=== PATIENT | female | born 1965 | race African-American/Black ===

== ENCOUNTER 2017-10-07 19:19 | Inpatient (IN) | payer OTHER ==
[~2017-10-07] VITALS: Ht 167.6 cm; Wt 58.3 kg
[~2017-10-07 19:19] MED LIST: ACYC400T PO; ARTIOIN OP; DOCU-137 PO; GABA400C11; INSLANTI SUBCUT; INSU100I4; LISI2.5T47; ONDANSETRON TAB 4MG ODT; TEMA15CA; [UNRECOGNIZED DRUG - CODE]
[2017-10-07 22:23] LABS: Albumin 3.6 g/dL (3.4-5.0); BUN/Creatinine Ratio 36.8; Calcium 10.9 mg/dL (8.5-10.1); Potassium 4.4 mmol/L (3.5-5.1)
[2017-10-07 22:25] LABS: Bilirubin, Total 0.4 mg/dL (0.2-1.0); Total Protein 8.6 g/dL (6.4-8.2)
[2017-10-07 22:44] LABS: Basophils # (auto) 0.1 uL; Basophils % (auto) 1.1 % (0.0-2.0); Eosinophils # (auto) 0.1 uL; Hematocrit 32.7 % (36.0-46.0); Lymphocytes # (auto) 1.8 uL; Lymphocytes % (auto) 19.6 % (10.0-50.0); Mean Corpuscular Hemoglobin 29.5 pg (28.0-32.0); Mean Corpuscular Hgb Conc. 33.7 g/dL (32.0-36.0); Mean Corpuscular Volume 87.5 fL (80.0-100.0); Monocytes # (auto) 0.4 uL; Monocytes % (auto) 4.8 % (0.0-12.0); Neutrophils # (auto) 6.7 uL; Neutrophils % (auto) 73.5 % (37.0-80.0); Nucleated Red Blood Cells % 0.1 %; Platelet Count (auto) 394 10^3/uL (140-450); Red Blood Cells 3.73 10^6/uL (4.0-5.20); Red Cell Distribution Width 15.5 % (11.8-14.3); White Blood Cell 9.2 10^3/uL (4.4-10.8)
[2017-10-07] MEDS ORDERED: InsuLIN REG 1unit/0.01ml Soln (100units/ml) IV ONE (22:45)
[2017-10-07] MEDS ORDERED: SODIUM CHLORIDE 0.9% 2,000 ML IV ONE (22:45)
[2017-10-07] MEDS ORDERED: HYDROmorphone HCL 2 MG/ML VL IV ONE (22:45)
[2017-10-07] MEDS ORDERED: ONDANSETRON HCL 4 MG/2 ML VIAL IV ONE (22:45)
[2017-10-07 23:09] LABS: INR 0.95 (0.9-1.15); Prothrombin Time 10.4 sec (9.37-12.3)
[2017-10-07] MEDS ORDERED: LORazepam 2MG/ML-1ML VIAL IV ONE (23:45)
[2017-10-08] MEDS ORDERED: LORazepam 2MG/ML-1ML VIAL IV ONE (04:15)
[2017-10-08] MEDS ORDERED: diphenhdrAMINE HCL 50 MG/1 ML VL IV ONE (04:15)
[2017-10-08] MEDS ORDERED: HALOPERIDOL LACTATE 5 MG/ML INJ VIAL IM ONE (04:15)
[2017-10-08] MEDS ORDERED: SODIUM CHLORIDE 0.9% 1,000 ML IV ONE (05:45)
[2017-10-08] MEDS ORDERED: SODIUM CHLORIDE 0.9% 1,000 ML IV SCH (06:05)
[2017-10-08] MEDS ORDERED: TEMAZEPAM 15 MG CAP PO PRN (06:15)
[2017-10-08] MEDS ORDERED: HYDROcodone-ACET 5/325MG TAB PO PRN (06:15)
[2017-10-08] MEDS ORDERED: MORPHINE SULFATE 10 MG/ML INJ 1ML SDV IV PRN (06:15)
[2017-10-08] MEDS ORDERED: DOCUSATE SOD 100 MG CAP PO PRN (06:15)
[2017-10-08] MEDS ORDERED: ONDANSETRON HCL 4 MG/2 ML VIAL IV PRN (06:15)
[2017-10-08] MEDS ORDERED: DEXTROSE (50%) 50ML SYRG IV PRN (06:15)
[2017-10-08] MEDS ORDERED: ACETAMINOPHEN 325 MG TAB PO PRN (06:15)
[2017-10-08] MEDS ORDERED: NITROGLYCERIN 0.4 MG SL TAB SL PRN (06:15)
[2017-10-08 08:00] VITALS: BP 103/65
[2017-10-08] MEDS: ACCU-CHEK COMFORT CURVE STRIP VI SCH ×2 (08:39→12:47)
[2017-10-08] MEDS: InsuLIN REG 1unit/0.01ml Soln (100units/ml) SC SCH ×2 (08:40→12:48)
[2017-10-08 08:52] VITALS: BP 103/65
[2017-10-08] MEDS ORDERED: cefTRIAXone 1GM/10ml IVPUSH 10 ML IV SCH (09:00)
[2017-10-08] MEDS ORDERED: PANTOPRAZOLE 40 MG TAB PO SCH (10:00)
[2017-10-08] MEDS ORDERED: ENOXAPARIN SOD 40 MG/0.4 ML SYRINGE SC SCH (10:00)
[2017-10-08] MEDS ORDERED: GABAPENTIN 400 MG CAP PO SCH (10:00)
[2017-10-08] MEDS ORDERED: LISINOPRIL 5 MG TAB PO SCH (10:00)
[2017-10-08 11:23] VITALS: BP 103/65
[2017-10-08 13:12] VITALS: BP 94/60
== END 2017-10-08 15:30 | disposition home or self-care (01) | DRG 349 ==
LOC: EDBD 19:19 → ER 19:22 → TELE 19:23 → TELE-WESTW 10-08 07:23
PROVIDERS: ADMIT Nurse Practitioner; ATTEND Internal Medicine
DX: T87.44 Infection of amputation stump, left lower extremity (principal); E11.10 Type 2 diabetes mellitus with ketoacidosis without coma; E11.22 Type 2 diabetes mellitus with diabetic chronic kidney disease; M86.8X7 Other osteomyelitis, ankle and foot; R56.9 Unspecified convulsions; N18.3 Chronic kidney disease, stage 3 (moderate); J44.9 Chronic obstructive pulmonary disease, unspecified; F17.210 Nicotine dependence, cigarettes, uncomplicated; K21.9 Gastro-esophageal reflux disease without esophagitis; F41.9 Anxiety disorder, unspecified; E86.0 Dehydration; Y81.3 Surgical instruments, materials and general- and plastic-surgery devices (including sutures) associated with adverse incidents; Y83.5 Amputation of limb(s) as the cause of abnormal reaction of the patient, or of later complication, without mention of misadventure at the time of the procedure; E78.5 Hyperlipidemia, unspecified; R35.8 Other polyuria; I12.9 Hypertensive chronic kidney disease with stage 1 through stage 4 chronic kidney disease, or unspecified chronic kidney disease; R63.1 Polydipsia; Z80.3 Family history of malignant neoplasm of breast; Z82.49 Family history of ischemic heart disease and other diseases of the circulatory system; Z86.73 Personal history of transient ischemic attack (TIA), and cerebral infarction without residual deficits; Z87.11 Personal history of peptic ulcer disease; Z83.3 Family history of diabetes mellitus
CPT/HCPCS: 36415; 71045; 73700; 74176; 80053; 82010; 82962; 83036; 85025; 85610; 87081; 93005; 96361; 96372; 96374; 96375; 96376; J1815; J2405

== ENCOUNTER 2017-10-31 10:18 | Emergency (ER) | payer OTHER ==
[~2017-10-31] VITALS: Ht 167.6 cm; Wt 54.4 kg
[2017-10-31 11:29] LABS: Basophils # (auto) 0.1 uL; Eosinophils # (auto) 0.3 uL; Hematocrit 30.4 % (36.0-46.0); Monocytes # (auto) 0.4 uL; Neutrophils # (auto) 5.9 uL
[2017-10-31 11:31] LABS: Basophils % (auto) 1.5 % (0.0-2.0); Eosinophils % (auto) 3.1 % (0.0-7.0); Lymphocytes % (auto) 22.8 % (10.0-50.0); Mean Corpuscular Hemoglobin 28.4 pg (28.0-32.0); Mean Corpuscular Hgb Conc. 32.9 g/dL (32.0-36.0); Mean Corpuscular Volume 86.4 fL (80.0-100.0); Monocytes % (auto) 4.4 % (0.0-12.0); Neutrophils % (auto) 68.2 % (37.0-80.0); Platelet Count (auto) 472 10^3/uL (140-450); Red Blood Cells 3.52 10^6/uL (4.0-5.20); Red Cell Distribution Width 15.6 % (11.8-14.3); White Blood Cell 8.7 10^3/uL (4.4-10.8)
[2017-10-31 11:52] LABS: Alanine Aminotransferase 17 U/L (13-56); Albumin 3.4 g/dL (3.4-5.0); Alkaline Phosphatase 133 U/L (45-117); Anion Gap 15 (5-15); Aspartate Aminotransferase 10 U/L (15-37); BUN/Creatinine Ratio 20.3; Bilirubin, Total 0.4 mg/dL (0.2-1.0); Blood Urea Nitrogen 37 mg/dL (7-18); Calcium 11.4 mg/dL (8.5-10.1); Carbon Dioxide 23 mmol/L (21-32); Chloride 96 mmol/L (98-107); GFR African American 38 mL/min; GFR Non-African American 31 mL/min; Glucose 360 mg/dL (74-106); Magnesium 1.9 mg/dL (1.6-2.6); Potassium 4.6 mmol/L (3.5-5.1); Sodium 134 mmol/L (136-145); Total Protein 8.9 g/dL (6.4-8.2)
[2017-10-31] MEDS ORDERED: SODIUM CHLORIDE 0.9% 1,000 ML IV ONE ×2 (15:30→21:00)
[2017-10-31] MEDS ORDERED: InsuLIN REG 1unit/0.01ml Soln (100units/ml) IV ONE ×2 (15:30→21:15)
[2017-10-31] MEDS ORDERED: MORPHINE SULFATE 4 MG/ML SYR/VIAL IV ONE (16:15)
[2017-10-31] MEDS ORDERED: ONDANSETRON HCL 4 MG/2 ML VIAL IV ONE ×2 (16:15→18:45)
[2017-10-31] MEDS ORDERED: LORazepam 2MG/ML-1ML VIAL IV ONE (17:30)
[2017-10-31] MEDS ORDERED: MEPERIDINE HCL (25 MG/ML) 1ML VIAL IV ONE (18:45)
[2017-10-31] MEDS ORDERED: PROMETHAZINE HCL 25 MG/ML 1ML ONE (22:15)
[2017-10-31] MEDS ORDERED: PROMETHAZINE HCL 25 MG/ML 1ML IV ONE (22:45)
[2017-10-31 23:43] VITALS: BP 113/78
== END 2017-11-01 00:44 | disposition home or self-care (01) ==
LOC: ER 10:18 → EDBD 10:18 → ER 11-01 00:44
DX: R10.9 Unspecified abdominal pain (principal); D64.9 Anemia, unspecified; I12.9 Hypertensive chronic kidney disease with stage 1 through stage 4 chronic kidney disease, or unspecified chronic kidney disease; E11.22 Type 2 diabetes mellitus with diabetic chronic kidney disease; N18.3 Chronic kidney disease, stage 3 (moderate); Z94.0 Kidney transplant status; K21.9 Gastro-esophageal reflux disease without esophagitis; J44.9 Chronic obstructive pulmonary disease, unspecified; Z79.4 Long term (current) use of insulin; Z79.899 Other long term (current) drug therapy
CPT/HCPCS: 36415; 71045; 74176; 80053; 82962; 83735; 84484; 85025; 93005; 96361; 96374; 96375; 96376; 99285; J1815; J2060; J2175; J2270; J2405; J2550; J7030

== ENCOUNTER 2020-01-18 02:00 | Emergency (ER) | payer OTHER ==
[~2020-01-18] VITALS: Ht 162.6 cm; Wt 54.1 kg
[~2020-01-18 02:00] MED LIST changes: +ACYC-43 PO; -ACYC400T PO; -DOCU-137 PO; +DOCU1CAP46 PO
[2020-01-18 02:44] LABS: Basophils # (auto) 0.1 10 ^3/uL (0-0.2); Eosinophils # (auto) 0.1 10 ^3/uL (0-0.8); Hemoglobin 8.1 g/dL (12.2-16.2); Lymphocytes # (auto) 2.2 10 ^3/uL (0.4-5.4); Mean Corpuscular Hemoglobin 26.7 pg (28.0-32.0); Monocytes # (auto) 0.5 10 ^3/uL (0-1.3); White Blood Cell 9.9 10^3/uL (4.4-10.8)
[2020-01-18] MEDS ORDERED: InsuLIN REG 1unit/0.01ml Soln (100units/ml) SC ONE (02:45)
[2020-01-18 02:46] LABS: Basophils % (auto) 0.6 % (0.0-2.0); Eosinophils % (auto) 1.3 % (0.0-7.0); Lymphocytes % (auto) 22.3 % (10.0-50.0); Mean Corpuscular Hgb Conc. 32.4 g/dL (32.0-36.0); Mean Corpuscular Volume 82.2 fL (80.0-100.0); Monocytes % (auto) 4.8 % (0.0-12.0); Platelet Count (auto) 595 10^3/uL (140-450); Red Blood Cells 3.04 10^6/uL (4.0-5.20); Red Cell Distribution Width 18.1 % (11.8-14.3)
[2020-01-18 02:59] LABS: INR 0.98 (0.9-1.15); Partial Thromboplastin Time 30.8 sec (23.64-32.05)
[2020-01-18 03:00] LABS: Albumin 2.3 g/dL (3.4-5.0); Calcium 8.8 mg/dL (8.5-10.1); Potassium 4.5 mmol/L (3.5-5.1)
[2020-01-18] MEDS ORDERED: VANCOMYCIN 1GM/250ML 250 ML IV ONE (03:00)
[2020-01-18] MEDS ORDERED: PIPERACILLIN-TAZOB 3.375GM 100 ML IV ONE (03:00)
[2020-01-18] MEDS ORDERED: SODIUM CHLORIDE 0.9% 1,000 ML IV ONE ×2 (03:00→05:00)
[2020-01-18 03:08] LABS: Bilirubin, Total 0.1 mg/dL (0.2-1.0); Total Protein 8.2 g/dL (6.4-8.2)
[2020-01-18 03:09] LABS: BUN/Creatinine Ratio 15.6
[2020-01-18] MEDS ORDERED: LORazepam 2MG/ML-1ML VIAL IV ONE (05:30)
[2020-01-18] MEDS ORDERED: ALUM & MAG HYDROX-SIMETH LIQ(MAALOX) 30 ML PO ONE (05:45)
[2020-01-18] MEDS ORDERED: DONNATAL 5ml ORAL Elix (BELLADONNA ALK-PHENOBARB) PO ONE (05:45)
[2020-01-18] MEDS ORDERED: LIDOCAINE VISCOUS 2% 15ML UD PO ONE (05:45)
[2020-01-18] MEDS ORDERED: InsuLIN REG 1unit/0.01ml Soln (100units/ml) IV ONE (05:45)
[2020-01-18 08:25] VITALS: BP 119/66
== END 2020-01-18 09:22 | disposition home or self-care (01) ==
LOC: EDBD 02:00 → ER 02:04
DX: L03.115 Cellulitis of right lower limb (principal); M86.8X7 Other osteomyelitis, ankle and foot; E11.65 Type 2 diabetes mellitus with hyperglycemia; F17.210 Nicotine dependence, cigarettes, uncomplicated; J44.9 Chronic obstructive pulmonary disease, unspecified; K21.9 Gastro-esophageal reflux disease without esophagitis; E78.5 Hyperlipidemia, unspecified; Z87.11 Personal history of peptic ulcer disease
CPT/HCPCS: 36415; 36556; 36600; 71045; 73700; 80053; 82805; 83605; 83880; 85025; 85610; 85730; 87040; 96365; 96366; 96372; 96375; 99285; J1815; J2060; J2543; J3370; J7030

== ENCOUNTER 2020-07-26 11:44 | Inpatient (IN) | payer MEDICAID, OTHER ==
[~2020-07-26] VITALS: Ht 162.6 cm; Wt 61.5 kg
[~2020-07-26 11:44] MED LIST changes: +ACYC-163 PO; -ACYC-43 PO
[2020-07-26] MEDS ORDERED: SODIUM CHLORIDE 0.9% 1,000 ML IVB ONE (12:00)
[2020-07-26] MEDS ORDERED: SODIUM CHLORIDE 0.9% 1,000 ML IV ONE (12:00)
[2020-07-26] MEDS ORDERED: HALOPERIDOL LACTATE 5 MG/ML INJ VIAL ONE (12:50)
[2020-07-26] MEDS ORDERED: diphenhdrAMINE HCL 50 MG/1 ML VL ONE (12:50)
[2020-07-26] MEDS ORDERED: LORazepam 2MG/ML-1ML VIAL ONE ×2 (12:51→16:51)
[2020-07-26] MEDS ORDERED: HALOPERIDOL LACTATE 5 MG/ML INJ VIAL IM ONE ×2 (13:00→17:00)
[2020-07-26] MEDS ORDERED: diphenhdrAMINE HCL 50 MG/1 ML VL IM ONE (13:00)
[2020-07-26] MEDS ORDERED: LORazepam 2MG/ML-1ML VIAL IM ONE ×3 (13:00→17:00)
[2020-07-26] MEDS ORDERED: diphenhdrAMINE HCL 50 MG/1 ML VL IV ONE (16:00)
[2020-07-26] MEDS ORDERED: LORazepam 2MG/ML-1ML VIAL IV ONE (17:00)
[2020-07-26 18:00] LABS: Basophils # (auto) 0 10 ^3/uL (0-0.2); Basophils % (auto) 0.6 % (0.0-2.0); Eosinophils # (auto) 0.2 10 ^3/uL (0-0.8); Eosinophils % (auto) 2.9 % (0.0-7.0); Hematocrit 27.7 % (36.0-46.0); Hemoglobin 9.4 g/dL (12.2-16.2); Lymphocytes # (auto) 2.3 10 ^3/uL (0.4-5.4); Lymphocytes % (auto) 30.4 % (10.0-50.0); Mean Corpuscular Hemoglobin 29.9 pg (28.0-32.0); Mean Corpuscular Hgb Conc. 33.8 g/dL (32.0-36.0); Mean Corpuscular Volume 88.5 fL (80.0-100.0); Monocytes # (auto) 0.7 10 ^3/uL (0-1.3); Monocytes % (auto) 8.7 % (0.0-12.0); Neutrophils # (auto) 4.4 10 ^3/uL (1.6-8.6); Neutrophils % (auto) 57.4 % (37.0-80.0); Platelet Count (auto) 309 10^3/uL (140-450); Red Blood Cells 3.13 10^6/uL (4.0-5.20); Red Cell Distribution Width 15.1 % (11.8-14.3); White Blood Cell 7.6 10^3/uL (4.4-10.8)
[2020-07-26 18:03] LABS: Anion Gap 5 (5-15); Blood Alcohol < 3.0 mg/dL (0-5); Blood Urea Nitrogen 31 mg/dL (7-18); Calcium 8.9 mg/dL (8.5-10.1); Carbon Dioxide 26 mmol/L (21-32); Chloride 108 mmol/L (98-107); Glucose 223 mg/dL (74-106); Potassium 3.8 mmol/L (3.5-5.1); Sodium 139 mmol/L (136-145)
[2020-07-26 18:09] LABS: Alanine Aminotransferase 19 U/L (13-56); Alkaline Phosphatase 75 U/L (45-117); Aspartate Aminotransferase 21 U/L (15-37); BUN/Creatinine Ratio 21.2; Bilirubin, Total 0.2 mg/dL (0.2-1.0); GFR African American 48 mL/min; GFR Non-African American 40 mL/min; Total Protein 6.6 g/dL (6.4-8.2)
[2020-07-26 18:36] LABS: Urine Bacteria MOD /hpf (None Seen); Urine Blood Negative /uL (Negative); Urine Hyaline Cast FEW /lpf (0 - 2); Urine Specific Gravity 1.014 (1.001-1.035); Urine WBC 3 /hpf (0 - 5)
[2020-07-26 18:42] LABS: Alcohol, Urine < 3.0 mg/dL (0-10); Amphetamine Screen, Urine NEGATIVE (NEGATIVE); Barbiturate Scree,Urine NEGATIVE (NEGATIVE); Benzodiazephine Screen, Urine NEGATIVE (NEGATIVE); Cannabinoid Screen, Urine POSITIVE (NEGATIVE); Cocaine Screen, Urine NEGATIVE (NEGATIVE); Opiate Scree,Urine NEGATIVE (NEGATIVE); Phencyclidine Screen, Urine NEGATIVE (NEGATIVE)
[2020-07-26] MEDS ORDERED: cloNIDine HCL 0.1 MG TAB PO PRN (19:15)
[2020-07-26] MEDS ORDERED: NITROGLYCERIN 0.4 MG SL TAB SL PRN (19:15)
[2020-07-26] MEDS ORDERED: DEXTROSE (50%) 50ML SYRG IV PRN (19:15)
[2020-07-26] MEDS ORDERED: MORPHINE SULF INJ 2 MG/ML SYRINGE 1ML IV PRN (19:15)
[2020-07-26] MEDS ORDERED: METOCLOPRAMIDE HCL 5MG/ml INJ 2ml VIAL IV PRN (19:15)
[2020-07-26] MEDS ORDERED: ACETAMINOPHEN 325 MG TAB PO PRN (19:15)
[2020-07-26] MEDS ORDERED: LORazepam 2MG/ML-1ML VIAL IV PRN (19:15)
[2020-07-26] MEDS: SODIUM CHLORIDE 0.9% 1,000 ML IV SCH (20:05)
[2020-07-26] MEDS: ACCU-CHEK COMFORT CURVE STRIP VI SCH (21:53)
[2020-07-26] MEDS ORDERED: InsuLIN REG 1unit/0.01ml Soln (100units/ml) SC SCH (22:00)
--- NOTE | 2020-07-26 22:40 | NUR ---
MS admit from ER JULIOCESAR JEAN-BAPTISTE admitted to tele/MS after SBAR received. Assumed care of patient, awake and alert to person only. Patient is altered, restless and agitated, moves around and trying to pull out the Lofton catheter and PICC line. Patient unable to respond to questions and resistive to care. Ativan IV given, sitter at bedside for safety. Will continue to monitor for changes Q1hr and PRN.
[2020-07-27] MEDS: SODIUM CHLORIDE 0.9% 1,000 ML IV SCH ×3 (03:20→19:15)
--- NOTE | 2020-07-27 04:10 | NUR ---
Patient still altered, moves a lot on the bed and trying to pull out the PICC line and Lofton catheter. Mittens placed on both hands, sitter at bedside.
--- NOTE | 2020-07-27 04:30 | NUR ---
Patient wants to eat, mittens removed and ate independently.
--- NOTE | 2020-07-27 05:25 | NUR ---
Wound photo taken on both feet.
[2020-07-27 06:04] LABS: Basophils # (auto) 0 10 ^3/uL (0-0.2); Basophils % (auto) 0.6 % (0.0-2.0); Eosinophils # (auto) 0.2 10 ^3/uL (0-0.8); Hematocrit 29.1 % (36.0-46.0); Hemoglobin 9.7 g/dL (12.2-16.2); Lymphocytes # (auto) 1.9 10 ^3/uL (0.4-5.4); Lymphocytes % (auto) 29.4 % (10.0-50.0); Mean Corpuscular Hemoglobin 29.9 pg (28.0-32.0); Mean Corpuscular Hgb Conc. 33.2 g/dL (32.0-36.0); Monocytes # (auto) 0.6 10 ^3/uL (0-1.3); Monocytes % (auto) 8.6 % (0.0-12.0); Neutrophils # (auto) 3.9 10 ^3/uL (1.6-8.6); Neutrophils % (auto) 58.4 % (37.0-80.0); Platelet Count (auto) 274 10^3/uL (140-450); Red Blood Cells 3.23 10^6/uL (4.0-5.20); Red Cell Distribution Width 15.7 % (11.8-14.3); White Blood Cell 6.6 10^3/uL (4.4-10.8)
[2020-07-27 06:26] LABS: Albumin 3.2 g/dL (3.4-5.0); Calcium 9.5 mg/dL (8.5-10.1); Potassium 3.7 mmol/L (3.5-5.1)
[2020-07-27 06:29] LABS: BUN/Creatinine Ratio 26.2; Bilirubin, Total 0.3 mg/dL (0.2-1.0); Total Protein 6.8 g/dL (6.4-8.2)
[2020-07-27] MEDS: ACCU-CHEK COMFORT CURVE STRIP VI SCH ×4 (06:29→23:35)
[2020-07-27] MEDS: InsuLIN REG 1unit/0.01ml Soln (100units/ml) SC SCH ×4 (06:29→23:34)
--- NOTE | 2020-07-27 10:00 | NUR ---
WOUND CARE NOTE: IN TO SEE PATIENT AT THIS TIME PER WOUND CARE CONSULT REQUEST. PATIENT ADMITTED TO [facility] WITH DIAGNOSIS OF HYPERGLYCEMIA, DM. CURRENT ALESSANDRO SCORE IS 16. PATIENT HAS SITTER AT BEDSIDE. PATIENT UNDERNEATH BEDDING, REFUSING ANY EXAMINATION/WOUND CARE AT THIS TIME. WOUND PHOTOS WERE TAKEN UPON ADMIT, OF BILATERAL FEET SKIN ISSUES. 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 IT DOES NOT APPEAR TO HAVE ANY OPEN AREAS NOTED. RIGHT LATERAL FOOT HAS A DFU, NOT ABLE TO ASCERTAIN IF WOUND IS OPEN AND/OR DRAINING OR NOT, BY LOOKING AT PHOTO. PATIENT CONTINUES TO REFUSE ANY WOUND CARE AT THIS TIME. RECOMMMEND: DAILY/PRN DRY DRESSING TO RIGHT LATERAL FOOT, IF WOUND OPEN. SKIN/WOUND CARE PLAN (IMPLEMENTED). WILL ATTEMPT TO SEE PATIENT AT ANOTHER TIME.
--- NOTE | 2020-07-27 11:46 | NUR ---
Nutrition Assessment/Consult Notes Please refer to link for full assessment notes. Est Energy needs: 4233-0705 kcals (25-30 kcal/kgBW) Est Protein needs: 40-50 gms/day (0.8-1.0 gm/kgBW) Will continue to monitor and reassess prn. Addendum: 07/27/20 at [address] Amended: Links added.
[2020-07-27 13:00] VITALS: BP 117/86
[2020-07-27] MEDS ORDERED: TEMAZEPAM 15 MG CAP PO PRN (13:30)
[2020-07-27] MEDS ORDERED: DEXTROSE (50%) 50ML SYRG IV PRN (13:30)
[2020-07-27] MEDS: GABAPENTIN 100 MG CAP PO SCH ×2 (14:16→23:28)
[2020-07-27] MEDS: MORPHINE SULF INJ 2 MG/ML SYRINGE 1ML IV PRN ×2 (14:17→23:35)
--- NOTE | 2020-07-27 14:22 | NUR ---
Lares catheter dc'd Order to discontinue lares catheter. Lares dc'd with clean technique following deflation of balloon. Patient tolerated well with no complaints of pain. 700 ML of urine noted in bag and documented. Continue care. cafeteria counter attendant at bedside.
[2020-07-27 17:09] VITALS: BP 99/60
[2020-07-27] MEDS ORDERED: INSULIN LANTUS (GLARGINE) 1 /0.01ml (100units/ml) SC SCH ×2 (18:00→22:00)
--- NOTE | 2020-07-27 18:04 | NUR ---
Patient has positive blood culture, MD Bardales paged to notify.
--- NOTE | 2020-07-27 18:56 | NUR ---
Patient care endorsed endorsed care to Fernando rn. Patient resting comfortably in bed no acute distress or sob noted. Call light within reach.
[2020-07-27 22:00] VITALS: BP 122/71
[2020-07-28] MEDS: SODIUM CHLORIDE 0.9% 1,000 ML IV SCH ×3 (02:33→20:29)
[2020-07-28 04:46] VITALS: BP 103/61
[2020-07-28] MEDS: GABAPENTIN 100 MG CAP PO SCH ×3 (06:14→22:43)
[2020-07-28] MEDS: ACCU-CHEK COMFORT CURVE STRIP VI SCH ×4 (06:15→22:43)
[2020-07-28] MEDS: InsuLIN REG 1unit/0.01ml Soln (100units/ml) SC SCH ×4 (06:15→22:41)
[2020-07-28] MEDS: MORPHINE SULF INJ 2 MG/ML SYRINGE 1ML IV PRN ×3 (06:16→20:25)
--- NOTE | 2020-07-28 06:25 | NUR ---
Called MD Bardales, and got transferred to MD Bueno, store consultant MD. No answer but left message with MD Bueno of sugar level this morning was 48, repeat is 51: provided juice and rechecked it was 61, patient refused to drink any more juice, and she said she is fine and will wait for breakfast. Awaiting call back.
--- NOTE | 2020-07-28 06:35 | NUR ---
Spoke to MD Bueno and notified him of sugar level this morning was 48, repeat is 51: provided juice and rechecked it was 61, patient refused to drink any more juice, or take any dextrose and she said she is fine and will wait for breakfast. MD Bueno provided no new orders and advised me to continue to monitor patient. Will carry out.
[2020-07-28 09:00] VITALS: BP 140/83
[2020-07-28] MEDS: ARTIFICIAL TEAR OPTH(EYE) OINT 3.5GM OP SCH (10:00)
[2020-07-28] MEDS: LISINOPRIL 5 MG TAB PO SCH (11:00)
[2020-07-28] MEDS: DOCUSATE SOD 100 MG CAP PO SCH (11:00)
--- NOTE | 2020-07-28 11:15 | NUR ---
WOUND CARE NOTE: PATIENT HAS AGREED TO A DRESSING CHANGE AT THIS TIME. IN TO OBSERVE DFU ULCERATION TO THE RIGHT LATERAL FOOT. PATIENT'S WOUND IS OPEN WITH PALE RED WOUND BED. PERIWOUND SKIN IS LOPEZ, SCANT SEROUS DRAINAGE NOTED. CLEANSED WOUND WITH WOUND CLEANSER, PATTED DRY WITH STERILE GAUZE. APPLIED THERAHONEY, TELFA, KERLIX WRAP, SECURING WITH TAPE. PATIENT TOLERATED DRESSING CHANGE/EXAM WELL, NOTING NO PAIN BY PATIENT. RECOMMEND: CHANGE DRESSING ORDER FROM DAILY TO EVERY OTHER DAY DRESSING CHANGE- THERAHONEY, TELFA, KERLIX WRAP, SECURING WITH TAPE, CONTINUATION WITH ALL OTHER WOUND CARE ORDERS PREVIOUSLY PRESCRIBED BY MD. WOUND CARE TEAM WILL CONTINUE TO MONITOR.
--- NOTE | 2020-07-28 11:30 | NUR ---
Dressing changed pt allowing nursing to assess wound to right foot at this time. Wound care nurse Norma at bedside. Wound to right foot cleansed with wound cleanser, padded dry with sterile gauze, thera honey applied and covered with gauze and wrapped with kerlix. Patient tolerated well with no c/o pain or discomfort. Will cont to monitor. medical attendant at bedside.
[2020-07-28 13:00] VITALS: BP 142/82
--- NOTE | 2020-07-28 13:35 | NUR ---
MD at bedside MD Bardales at bedside, aware of patient's status. Cont to monitor
[2020-07-28 17:00] VITALS: BP 124/72
[2020-07-28] MEDS: PIPERACILLIN-TAZOB 3.375GM 100 ML IV SCH (19:09)
--- NOTE | 2020-07-28 19:10 | NUR ---
Patient care endorsed endorsed care to Fernando rn, patient laying in bed in no acute distress or sob. bath house attendant at bedside. Call light within reach
[2020-07-28 22:00] VITALS: BP 115/67
[2020-07-28] MEDS ORDERED: INSULIN LANTUS (GLARGINE) 1 /0.01ml (100units/ml) SC SCH (22:00)
[2020-07-29] MEDS: PIPERACILLIN-TAZOB 3.375GM 100 ML IV SCH ×3 (01:54→13:31)
[2020-07-29 05:00] VITALS: BP 99/60
[2020-07-29] MEDS: InsuLIN REG 1unit/0.01ml Soln (100units/ml) SC SCH ×2 (06:15→12:57)
[2020-07-29] MEDS: GABAPENTIN 100 MG CAP PO SCH ×2 (06:15→13:31)
[2020-07-29] MEDS: SODIUM CHLORIDE 0.9% 1,000 ML IV SCH ×2 (06:15→11:15)
[2020-07-29] MEDS: ACCU-CHEK COMFORT CURVE STRIP VI SCH ×2 (06:16→12:52)
[2020-07-29] MEDS: MORPHINE SULF INJ 2 MG/ML SYRINGE 1ML IV PRN (06:26)
[2020-07-29 07:24] LABS: Basophils # (auto) 0 10 ^3/uL (0-0.2); Basophils % (auto) 0.4 % (0.0-2.0); Eosinophils # (auto) 0.3 10 ^3/uL (0-0.8); Eosinophils % (auto) 3.6 % (0.0-7.0); Hematocrit 27.6 % (36.0-46.0); Hemoglobin 9.2 g/dL (12.2-16.2); Lymphocytes # (auto) 2.3 10 ^3/uL (0.4-5.4); Lymphocytes % (auto) 31.8 % (10.0-50.0); Mean Corpuscular Hemoglobin 30.1 pg (28.0-32.0); Mean Corpuscular Hgb Conc. 33.5 g/dL (32.0-36.0); Mean Corpuscular Volume 89.9 fL (80.0-100.0); Monocytes # (auto) 0.7 10 ^3/uL (0-1.3); Monocytes % (auto) 8.9 % (0.0-12.0); Neutrophils # (auto) 4.1 10 ^3/uL (1.6-8.6); Neutrophils % (auto) 55.3 % (37.0-80.0); Platelet Count (auto) 269 10^3/uL (140-450); Red Blood Cells 3.07 10^6/uL (4.0-5.20); Red Cell Distribution Width 15.6 % (11.8-14.3); White Blood Cell 7.4 10^3/uL (4.4-10.8)
[2020-07-29 07:32] LABS: BUN/Creatinine Ratio 14.5; Calcium 8.4 mg/dL (8.5-10.1); Potassium 4.3 mmol/L (3.5-5.1)
--- NOTE | 2020-07-29 08:00 | NUR ---
Morning note Patient resting in bed with even and unlabored respirations on room air, no distress noted. Instructed patient on POC, fall precautions and to call for assistance as needed. Patient verbalized understanding.
[2020-07-29 08:34] VITALS: BP 128/68
[2020-07-29] MEDS ORDERED: FAMO20TA10 PO (09:58)
[2020-07-29] MEDS ORDERED: IBU600T PO (09:58)
[2020-07-29] MEDS: ARTIFICIAL TEAR OPTH(EYE) OINT 3.5GM OP SCH (10:00)
--- NOTE | 2020-07-29 10:00 | NUR ---
POC discussed with Dr. Bardales Notified MD of patients c/o pain. MD verbalized understanding.
[2020-07-29] MEDS: DOCUSATE SOD 100 MG CAP PO SCH (11:01)
[2020-07-29] MEDS: LISINOPRIL 5 MG TAB PO SCH (11:01)
--- NOTE | 2020-07-29 12:45 | NUR ---
RE: guest services coordinator Spoke with Mera, SW, RE: active social security specialist order. guest services coordinator order has been completed per Mera. Home health has been arranged with [facility]. Patient has a FWW per Mera.
--- NOTE | 2020-07-29 13:40 | NUR ---
CENTRAL LINE REMOVAL Central line DC'd with clean sterile technique, catheter fully intact. Pressure dressing applied to site. No bleeding noted. Patient tolerated well.
--- NOTE | 2020-07-29 14:49 | NUR ---
DC/wound photos Pt education and f/u instructions given to pt. Pt verbalized understanding. Wound care photos taken.
--- NOTE | 2020-07-29 15:01 | NUR ---
Called prescriptions into preferred pharmacy Patient requested prescriptions be called to [facility] pharmacy in [place].
--- NOTE | 2020-07-29 15:03 | NUR ---
Discharge Discharge education and paperwork provided to the patient per MD order. Patient verbalized understanding. Dressing to IV site is clean, dry and intact with no bleeding, swelling or ecchymosis noted. Respirations even and unlabored, no distress noted. Patient reports having all personal belongings.
--- NOTE | 2020-07-29 15:18 | NUR ---
[facility] [employer] contacted to transport patient ETA 10 minutes.
--- NOTE | 2020-07-29 15:33 | NUR ---
Patient transferred to [facility] via wheelchair accompanied by staff member. Patient reports having all personal belongings. Dressing to the right groin is clean, dry and intact with no bleeding, swelling or ecchymosis noted. No distress noted on discharge.
--- NOTE | 2020-07-29 15:33 | NUR ---
assessment Patient is a 55 year old female who is alert and oriented. Patients emotional state is stable. Prior to admission patient lived home with family and functioned with assistance. Per patient she will return home to her prior living arrangements post discharge and will need a taxi voucher to home. I informed patient of her consult for [facility] for safety and fww. Patient informed me she wants the safety eval, but she already has a fww, wheelchair and a cane for home use. I sent MD order to [facility]. Per Kristi at [facility] she has accepted patient for service on 07/31/20. [place] corrections caseworker is getting auth from [facility]. I informed patient she has a right to speak to a social media project manager regarding all care. I informed patient she has a right to participate in any and all discharge planning. Patient does not have a POA and advanced directive. I have offered patient information on POA and advanced directives. I informed the patient the advantages and benefits of having an Advanced Directive. Patient verbalized understanding and agreed to discharge plan. Addendum: 07/29/20 at 1540 by Mera Coats Amended: Links added.
[2020-07-30] MEDS ORDERED: DOXY-346 PO (08:56)
--- NOTE | 2020-07-30 12:28 | NUR ---
I faxed home health order to [facility]-requesting authorization for [facility].
--- NOTE | 2020-07-30 15:53 | NUR ---
[facility] number for [facility] is [id number].
== END 2020-07-29 15:35 | disposition home health service (06) | DRG 52 ==
LOC: ER 11:44 → EDBD 11:44 → WEST WING 11:45
PROVIDERS: ADMIT Hospitalist; ATTEND Hospitalist
PROC: 06HY33Z Insertion of Infusion Device into Lower Vein, Percutaneous Approach (ICD-10-PCS; principal; 2020-07-26)
DX: G93.41 Metabolic encephalopathy (principal); R78.81 Bacteremia; E11.65 Type 2 diabetes mellitus with hyperglycemia; B96.89 Other specified bacterial agents as the cause of diseases classified elsewhere; E78.5 Hyperlipidemia, unspecified; E11.22 Type 2 diabetes mellitus with diabetic chronic kidney disease; F17.210 Nicotine dependence, cigarettes, uncomplicated; K21.9 Gastro-esophageal reflux disease without esophagitis; N18.9 Chronic kidney disease, unspecified; G89.29 Other chronic pain; I13.10 Hypertensive heart and chronic kidney disease without heart failure, with stage 1 through stage 4 chronic kidney disease, or unspecified chronic kidney disease; F41.9 Anxiety disorder, unspecified; F32.9 Major depressive disorder, single episode, unspecified; J44.9 Chronic obstructive pulmonary disease, unspecified; Z82.49 Family history of ischemic heart disease and other diseases of the circulatory system; Z83.3 Family history of diabetes mellitus; Z87.11 Personal history of peptic ulcer disease; Z91.19 Patient's noncompliance with other medical treatment and regimen; Z79.899 Other long term (current) drug therapy
CPT/HCPCS: 36415; 36556; 51702; 70450; 71045; 80048; 80053; 80307; 80320; 81001; 82010; 82962; 83605; 84484; 85025; 87040; 87077; 87186; 93005; 96361; 96372; 96374; 99291; G0378; J1815; J2543

== ENCOUNTER 2020-09-02 19:18 | Emergency (ER) | payer MEDICAID ==
[~2020-09-02] VITALS: Ht 162.6 cm; Wt 54.4 kg
[~2020-09-02 19:18] MED LIST changes: -ACYC-163 PO; +DOXY-346 PO; +FAMO20TA10 PO; +IBU600T PO; -[UNRECOGNIZED DRUG - CODE]
[2020-09-02] MEDS ORDERED: ACETAMINOPHEN 325 MG TAB PO ONE ×2 (20:19→20:30)
[2020-09-02] MEDS ORDERED: InsuLIN REG 1unit/0.01ml Soln (100units/ml) IV ONE (20:30)
[2020-09-02] MEDS ORDERED: SODIUM CHLORIDE 0.9% 1,000 ML IV ONE (20:30)
[2020-09-02 21:12] LABS: Basophils # (auto) 0 10 ^3/uL (0-0.2); Basophils % (auto) 0.5 % (0.0-2.0); Eosinophils # (auto) 0.1 10 ^3/uL (0-0.8); Eosinophils % (auto) 0.7 % (0.0-7.0); Hemoglobin 7.8 g/dL (12.2-16.2); Lymphocytes # (auto) 0.8 10 ^3/uL (0.4-5.4); Monocytes # (auto) 0.6 10 ^3/uL (0-1.3); Neutrophils # (auto) 6.4 10 ^3/uL (1.6-8.6); White Blood Cell 7.9 10^3/uL (4.4-10.8)
[2020-09-02 21:14] LABS: Hematocrit 23.5 % (36.0-46.0); Lymphocytes % (auto) 9.8 % (10.0-50.0); Mean Corpuscular Hgb Conc. 33.3 g/dL (32.0-36.0); Mean Corpuscular Volume 90.2 fL (80.0-100.0); Platelet Count (auto) 296 10^3/uL (140-450); Red Cell Distribution Width 15.4 % (11.8-14.3)
[2020-09-02 21:23] LABS: INR 0.94 (0.9-1.15); Partial Thromboplastin Time 24.5 sec (23.0-31.2)
[2020-09-02 21:32] LABS: Potassium 5.1 mmol/L (3.5-5.1)
[2020-09-02 21:43] LABS: Albumin 2.6 g/dL (3.4-5.0); Bilirubin, Total 0.4 mg/dL (0.2-1.0); Calcium 8.9 mg/dL (8.5-10.1); Magnesium 2.3 mg/dL (1.6-2.6); Total Protein 6.7 g/dL (6.4-8.2)
[2020-09-02 23:30] VITALS: BP 132/77
[2020-09-03 01:55] LABS: Urine Amorphous Crystal FEW /hpf (None Seen); Urine Bacteria MOD /hpf (None Seen); Urine Blood 3+ /uL (Negative); Urine Mucus FEW (None Seen); Urine Specific Gravity 1.014 (1.001-1.035); Urine WBC 17 /hpf (0 - 5)
== END 2020-09-03 01:45 | disposition left against medical advice (07) ==
LOC: ER 19:18 → EDBD 19:18 → ER 09-03 01:45
DX: I21.A1 Myocardial infarction type 2 (principal); I10 Essential (primary) hypertension; E11.9 Type 2 diabetes mellitus without complications; K21.9 Gastro-esophageal reflux disease without esophagitis; E78.5 Hyperlipidemia, unspecified; Z79.899 Other long term (current) drug therapy
CPT/HCPCS: 36415; 36600; 71045; 80053; 81001; 82010; 82805; 82962; 83735; 83880; 84484; 85025; 85610; 85730; 93005; 96361; 96374; 99285; J1815; J7030